=== PATIENT | female | born 1990 | race African-American/Black ===

== ENCOUNTER 2023-11-26 13:02 | Inpatient (IN) | payer MEDICAID ==
[~2023-11-26] VITALS: Ht 167.6 cm; Wt 86.0 kg
[2023-11-26 14:20] LABS: PH,URINE DRUG SCREEN 6.5 (5.0-8.0)
[2023-11-26] MEDS: HALOPERIDOL LACTATE 5 MG/ML VIAL IM ONE (14:24)
[2023-11-26] MEDS: DiphenhydrAMINE HCL 50 MG/ML VIAL IM ONE (14:24)
[2023-11-26] MEDS: LORazepam 2 MG/ML VIAL IM ONE (14:24)
[2023-11-26 14:26] LABS: ALCOHOL, URINE DRUG SCREEN NEGATIVE (NEGATIVE); AMPHET/METH SCREEN,URINE NEGATIVE (NEGATIVE); BARBITURATE SCREEN, URINE NEGATIVE (NEGATIVE); BENZODIAZEPINES SCREEN,URINE POSITIVE (NEGATIVE); CANNABINOID SCREEN,URINE POSITIVE (NEGATIVE); COCAINE SCREEN,URINE NEGATIVE (NEGATIVE); METHADONE SCREEN, URINE NEGATIVE (NEGATIVE); OPIATE SCREEN,URINE NEGATIVE (NEGATIVE); PHENCYCLIDINE SCREEN,URINE NEGATIVE (NEGATIVE)
[2023-11-26 16:33] LABS: COVID AG,FIA SOURCE NASAL SWAB
[2023-11-26 16:52] LABS: SARS-COV2 (COVID) ANTIGEN,FIA Negative (Negative)
[2023-11-26 19:09] LABS: BASOPHILS % (AUTO) 0.4 % (0.0-2.0); EOSINOPHILS % (AUTO) 0.3 % (1.0-6.0); HEMATOCRIT 35.2 % (36-46); HEMOGLOBIN 11.7 g/dL (12.0-16.0); LYMPHOCYTES % (AUTO) 35.6 % (22.0-44.0); MEAN CORPUSCULAR HEMOGLOBIN 28.3 pg (26.0-34.0); MEAN CORPUSCULAR HGB CONC 33.2 G/dL (31.0-37.0); MEAN CORPUSCULAR VOLUME 85 fL (80-100); MONOCYTES # (AUTO) 0.9 K/uL (0.1-1.0); MONOCYTES % (AUTO) 11.3 % (2.0-9.0); NEUTROPHILS # (AUTO) 4.4 K/uL (1.8-7.7); NEUTROPHILS % (AUTO) 52.4 % (40.0-70.0); PLATELET COUNT (AUTO) 293 K/uL (150-450); RED BLOOD CELL COUNT(AUTO) 4.12 MIL/uL (4.00-5.20); RED CELL DISTRIBUTION WIDTH 15.3 % (11.5-14.5); WHITE BLOOD COUNT (AUTO) 8.3 K/uL (4.5-11.0)
[2023-11-26 19:11] LABS: ANION GAP 10 mmol/L (8-16); CALCIUM, TOTAL 8.8 mg/dL (8.8-10.5); CARBON DIOXIDE 26 mmol/L (22-29); CHLORIDE 105 mmol/L (98-107); CREATININE 0.72 mg/dL (0.60-1.30); GLOMERULAR FILTR. RATE CALC > 60 mL/min (>60); GLUCOSE,RANDOM 91 mg/dL (70-110); POTASSIUM 3.6 mmol/L (3.5-5.1); SODIUM SERUM 141 mmol/L (136-145); UREA NITROGEN, BLOOD 10 mg/dL (7-18)
[2023-11-26] MEDS ORDERED: HALOPERIDOL 5 MG TABLET PO PRN (19:15)
[2023-11-26 19:19] LABS: ALCOHOL, BLOOD (SERUM) < 3 mg/dL (0-10)
[2023-11-26 19:28] LABS: ALANINE AMINOTRANSFERASE 28 U/L (12-78); ALBUMIN 3.8 g/dL (3.4-5.0); ALKALINE PHOSPHATASE 75 U/L (46-116); ASPARTATE AMINOTRANSFERASE 21 U/L (15-37); BILIRUBIN,TOTAL 0.4 mg/dL (0.1-1.0); TOTAL PROTEIN, SERUM 6.6 g/dL (6.4-8.2)
[2023-11-27 00:34] VITALS: BP 123/57; PULSE 115; RESP 20; TEMP 98.6
[2023-11-27] MEDS ORDERED: ALBUTEROL SULFATE HFA 90 MCG/PUFF 8 GM INHALER IH PRN (05:45)
[2023-11-27] MEDS ORDERED: BACITRACIN 28 GM OINTMENT TP PRN (05:45)
[2023-11-27] MEDS ORDERED: ACETAMINOPHEN 325 MG TABLET PO PRN (05:45)
[2023-11-27] MEDS ORDERED: CloNIDine HCL 0.1 MG TABLET PO PRN (05:45)
[2023-11-27] MEDS ORDERED: MAG HYDROX/ALUMINUM HYD/SIMETH ES 30 ML SUSPENSION UDCUP PO PRN (05:45)
[2023-11-27] MEDS ORDERED: OMEPRAZOLE 20 MG CAPSULE PO PRN (05:45)
[2023-11-27] MEDS ORDERED: MAGNESIUM HYDROXIDE SUSPENSION 30 ML UDCUP PO PRN (05:45)
[2023-11-27] MEDS ORDERED: DOCUSATE SODIUM 100 MG CAPSULE PO PRN (05:45)
[2023-11-27] MEDS ORDERED: ONDANSETRON HCL 4 MG TABLET PO PRN (05:45)
[2023-11-27] MEDS ORDERED: IBUPROFEN 600 MG TABLET PO PRN (05:45)
[2023-11-27] MEDS ORDERED: LOPERAMIDE HCL 2 MG CAPSULE PO PRN (05:45)
[2023-11-27] MEDS ORDERED: PETROLATUM,WHITE 28 GM JELLY TP PRN (05:45)
[2023-11-27] MEDS ORDERED: BENZOCAINE/MENTHOL LOZENGE PO PRN (05:45)
[2023-11-27 08:23] VITALS: BP 130/93; PULSE 117; RESP 19; TEMP 97.9
[2023-11-27] MEDS: LORazepam 2 MG TABLET PO PRN (08:40)
[2023-11-27] MEDS: SERTRALINE HCL 100 MG TABLET PO SCH (12:07)
[2023-11-27] MEDS: DIVALPROEX SODIUM 500 MG DR TABLET PO SCH (12:07)
[2023-11-27] MEDS: TraZODone HCL 150 MG TABLET PO SCH (20:23)
[2023-11-27 20:47] VITALS: BP 150/68; PULSE 103; RESP 18; TEMP 97.7
[2023-11-28 08:24] VITALS: BP 150/76; PULSE 108; RESP 18; TEMP 97.9
[2023-11-28] MEDS: ZOLPIDEM TARTRATE 10 MG TABLET PO PRN (21:21)
[2023-11-28 21:31] VITALS: RESP 18
[2023-11-29 08:38] VITALS: BP 118/55; PULSE 81; RESP 18; TEMP 97.9
[2023-11-29] MEDS ORDERED: DIVA250T4 PO (12:51)
[2023-11-29] MEDS ORDERED: SERT-162 PO (12:52)
[2023-11-29] MEDS ORDERED: TRAZ150T79 PO (12:53)
== END 2023-11-29 18:00 | disposition home or self-care (01) | DRG 754 ==
LOC: EMS 13:02 → 3EC 21:41
PROVIDERS: ADMIT Psychiatry & Neurology Psychiatry; ATTEND Psychiatry & Neurology Psychiatry
DX: F32.9 Major depressive disorder, single episode, unspecified (principal); F20.0 Paranoid schizophrenia; R45.851 Suicidal ideations; F43.10 Post-traumatic stress disorder, unspecified; Z20.822 Contact with and (suspected) exposure to COVID-19; G47.00 Insomnia, unspecified; K59.00 Constipation, unspecified; F41.9 Anxiety disorder, unspecified
CPT/HCPCS: 80053; 80307; 84703; 85025; 99291; G0480; J1200; J1630; J2060